=== PATIENT | female | born 1970 | race Hispanic/Latino ===

== ENCOUNTER 2016-11-24 14:19 | Emergency (ER) | payer SELFPAY ==
[~2016-11-24] VITALS: Ht 160 cm; Wt 81.8 kg
[~2016-11-24 14:19] MED LIST: CALC-795 PO; PNV1TABL57 PO; PRO20; QTP100T PO
[2016-11-24 14:26] VITALS: BP 132/80; PULSE 64; RESP 14; O2SAT 99
[2016-11-24 17:01] LABS: BASOPHILS % (AUTO) 0.2 % (0-3); EOSINOPHILS % (AUTO) 1.4 % (0-5); MONOCYTES % (AUTO) 4.4 % (4-12); Mean Corpuscular Hemoglobin 28.8 pg (27.0-35.0); Mean Corpuscular Volume 84.6 fL (81-100); Platelet Count 308 bil/L (150-400)
[2016-11-24 17:25] LABS: Magnesium 2.2 mg/dL (1.6-2.6)
--- NOTE | 2016-11-24 18:25 | ED.REPORT ---
HPI-Chest Pain 40 and Over Date of Service Nov 24, 2016 ED Provider: Leandro Durand MD History of Present Illness: Akila Bravo is a 46 year old woman with a PMH of Depression and anxiety who presents to the ER having been referred from [facility], an acute care hospital for chest pain. She states that for the past 2 days she has been having diffuse musculoskeletal pain and headaches and "I don't feel like myself". She further complains of pain with deep inspiration, she denies recent immobility, hormonal therapy, LE edema or pain in her LE. She adds that she has been feeling nauseous for the past week and hasn't been able to eat much in the interim. Nursing Notes Stated Complaint: WEAKNESS,DIZZINESS Chief Complaint: General Complaint Nursing Notes Reviewed: Yes Allergies: Coded Allergies: No Known Allergies (Unverified Allergy, Unknown, 11/24/16) Scheduled Calcium Carb/Vit D3/Minerals (Calcium +D & Min Chew Tab) 1 Each Tab.chew 1 EACH PO DAILY FLUoxetine-Expunged Drug, Do Not Renew! (FLUoxetine-Expunged Drug, Do Not Renew! ) 20 Mg Capsule DAILY PNV CMB#95/FERROUS FUMARATE/FA-Expunged Drug, (-Expunged Drug, Do Not Renew!) 1 Each Tablet 1 EACH PO DAILY QUEtiapine-Expunged Drug, Do Not Renew! (SEROquel-Expunged Drug, Do Not Renew!) 100 Mg Tablet 100 MG PO DAILY General Time Seen by MD: 18:21 Chief Complaint Chest pain Hx Obtained From: Patient Sudden in Onset?: No Onset Occurred: 3 days ago Location: : Chest left Quality: Aching Radiation: : Neck Severity: Current: Moderate Severity: Maximum: Severe Recent Healthcare: Recent doctor visit Similar Sx Previous: No Risk Factors )( CAD Risk Stratification No risk factors )( TAD Risk Stratification Risk factors reviewed, No risk factors )( PE Risk Stratification No risk factors Past Medical History Past Medical History Depression Anxiety Review of Systems Cardiovascular: Reports: Chest pain, Palpitations GI: Reports: Nausea Neurologic: Reports: Headache Complete sys rev & neg: except as marked. Physical Exam Physical Exam Notes: Gen: A/O x3 occitan speaking woman in moderate acute distress secondary to multifocal pain Neck: supple, non tender, Full ROM HEENT: PERRL, EOMI, no scleral icterus, no conjunctival pallor CV: RRR, no murmurs rubs or gallops Resp: Lungs CTA BL, no wheezing rales or rhonchi Abdomen: Soft, non tender, no organomegally Extr: Hypertonic musculature in BL trapezius, no clubbing cyanosis or edema Neuro: CN 2-12 grossly intact, no focal neurologic deficit. Initial Vital Signs Vital Signs (First) Date Time Temp Pulse Resp B/P Pulse Ox O2 Delivery O2 Flow Rate FiO2 11/24/16 14:26 36.7 64 14 132/80 99 Room Air Initial VS: Reviewed, Vital signs normal Interpretation & Diagnostics Lab Results Interpretation Result Diagram: 11/24/16 1650 11/24/16 1650 Test 11/24/16 16:50 11/24/16 19:55 White Blood Count 10.9th/mm3 (3.8-10.1) Red Blood Count 5.38mil/mm3 (3.90-5.20) Hemoglobin 15.5g/dL (12.0-15.6) Hematocrit 45.5% (35.0-46.0) Mean Corpuscular Volume 84.6fL (81-100) Mean Corpuscular Hemoglobin 28.8pg (27.0-35.0) Mean Corpuscular Hemoglobin Concent 34.1% (32.0-37.0) Red Cell Distribution Width 14.6% (12.3-15.4) Platelet Count 308bil/L (150-400) Neutrophils (%) (Auto) 66.0% (40-74) Lymphocytes (%) (Auto) 27.7% (14-46) Monocytes (%) (Auto) 4.4% (4-12) Eosinophils (%) (Auto) 1.4% (0-5) Basophils (%) (Auto) 0.2% (0-3) D-Dimer 0.6mg/L (<0.50) Sodium Level 139mEq/L (134-144) Potassium Level 4.2mEq/L (3.5-5.2) Chloride Level 102mEq/L (97-108) Carbon Dioxide Level 24mmol/L (18-29) Blood Urea Nitrogen 8mg/dL (6-24) Creatinine 0.69mg/dL (0.57-1.00) Estimat Glomerular Filtration Rate 131mL/min (>59) Glucose Level 99mg/dL (60-99) Calcium Level 9.8mg/dL (8.5-10.1) Magnesium Level 2.2mg/dL (1.6-2.6) Total Bilirubin 0.3mg/dL (0.0-1.2) Aspartate Amino Transf (AST/SGOT) 20U/L (0-50) Alanine Aminotransferase (ALT/SGPT) 21U/L (0-32) Alkaline Phosphatase 98U/L (25-150) Total Protein 7.9g/dL (6.4-8.4) Albumin 4.6g/dL (3.4-5.0) Hold [place] Top Tube Received (Received) Troponin T < 0.010ug/L (0.0-0.011) Lab values outside NL range: no clinical significance. Lab Results Interpretation: Mildly elevated WBC, D-Dimer elevated BUN,Cr WNL CT Chest Interpretation Study type: CT pulm angiogram Interpretation / Wet Read by: Interpret - Radiologist NL CT Chest Findings: Lungs normal, Great vessels normal, Normal mediastinum, No pulmonary embolism, No mass, No pneumothorax Re-Eval/Medical Decision Med Decision/Clinical Course Patient complains of pain with deep inspiration with a positive D-Dimer so she underwent CT angio which was negative for PE, Trop negative x2. Patient most likely suffering from tension headache or atypical migraine, given Toradol for pain relief. Counseled Regarding: Diagnosis, Lab results, Need for follow-up, When/why to return to ED Discharge & Departure Shift Change Sign-Out Response to Therapy: Improved Primary Impression: Tension headache Disposition: Home Discharge Condition All VS Reviewed: Yes Condition: Stable Patient Instructions: Acute Headache (ED) Referrals: Jesus Hunt MD (PCP) copies to: Jesus Hunt MD, David E DO Nov 24, 2016 18:25
--- NOTE | 2016-11-24 19:03 | DRSVH ---
PROCEDURE: X-RAY CHEST ONE VIEW, PORTABLE ([id number]) INDICATIONS: chest pain TECHNIQUE: One view of the chest was acquired. COMPARISON: None. FINDINGS: Surgical changes and devices: None. Lungs and pleura: No pleural effusions or pneumothorax. Lungs are clear. Mediastinum: Mediastinal contours appear normal. Heart size is normal. Bones and chest wall: No suspicious bony lesions. Overlying soft tissues appear unremarkable. IMPRESSION: No acute cardiopulmonary disease process. Dictated by: Rocio New MD, PhD on 11/24/2016 at 19:01 Approved by: Rocio New MD, PhD on 11/24/2016 at 19:02
--- NOTE | 2016-11-24 20:24 | DRSVH ---
PROCEDURE: CT ANGIO CHEST PULMONARY EMBOLISM ([id number]) INDICATIONS: Pain with inhalation and +D-D TECHNIQUE: After the administration of intravenous contrast, 2 mm thick sections acquired from the pulmonary api raul to the posterior costophrenic angles. 3-dimensional maximum intensity projection (MIP) coronal a nd sagittal reformats were then acquired through the thorax. For radiation dose reduction, the follo wing was used: automated exposure control, adjustment of mA and/or kV according to patient size. COMPARISON: None. FINDINGS: Image quality: Limited secondary to suboptimal contrast opacification of the segmental and subsegmen orwan pulmonary arteries. Pulmonary arteries: Pulmonary arteries are normal in size, and demonstrate no intraluminal filling d efects to suggest large central pulmonary embolism. Lungs and pleura: Lungs are clear. No pleural effusions or pneumothorax. Central and peripheral ai rways are patent. Mediastinum: Heart size is normal, without pericardial effusion. No mediastinal or hilar adenopathy . Thoracic aorta is normal in caliber and enhancement. Esophagus is normal in caliber, without hiat al hernia. Bones and chest wall: No suspicious bony lesions. Ribs and thoracic spine appear intact throughout. Thyroid gland is within normal limits where visualized. No axillary or supraclavicular adenopathy. Abdomen: Visualized upper abdominal solid organs appear normal in the early arterial phase of enhanc ement. IMPRESSION: 1. No large central pulmonary embolus. Pulmonary emboli involving the segmental or subsegmental art eries cannot be completely excluded due to sub-optimal opacification of those vessels. 2. No acute lung opacities. Dictated by: Rocio New MD, PhD on 11/24/2016 at 20:20 Approved by: Rocio New MD, PhD on 11/24/2016 at 20:23
[2016-11-24] MEDS ORDERED: IBUP-1827 PO (21:01)
[2016-11-24 21:06] VITALS: BP 110/65; PULSE 60; RESP 20; O2SAT 97
[2016-11-24 22:27] VITALS: BP 118/65; PULSE 74; RESP 20; O2SAT 97
== END 2016-11-24 22:28 | disposition home or self-care (01) ==
LOC: SED 14:19
DX: G44.209 Tension-type headache, unspecified, not intractable (principal)
CPT/HCPCS: 36415; 71010; 71275; 80053; 83735; 84484; 85025; 85379; 93005; 96374; 99285; J1885; Q9967